=== PATIENT | female | born 1945 | race Caucasian/White ===

== ENCOUNTER 2016-06-07 11:18 | Emergency (ER) | payer OTHER ==
[2016-06-07 11:42] LABS: URINE MICRO REVIEW NEEDED? NO; URINE SOURCE CLEAN CATCH
[2016-06-07 11:52] LABS: BILIRUBIN URINE NEGATIVE (NEGATIVE); BLOOD URINE NEGATIVE (NEGATIVE); COLOR YELLOW; GLUCOSE URINE NEGATIVE (NEGATIVE); LEUKOCYTES URINE MODERATE (NEGATIVE); NITRITE URINE NEGATIVE (NEGATIVE); PROTEIN URINE NEGATIVE (NEGATIVE); SP GRAVITY URINE 1.011; TURBIDITY URINE CLEAR (CLEAR); UROBILINOGEN URINE NORMAL (NORMAL)
[2016-06-07 11:54] LABS: UR EPITHELIAL CELLS <10 /HPF (<10); URINE BACTERIA NEGATIVE /HPF; URINE CULTURE NEEDED? YES; URINE RBC <10 /HPF (<10); URINE WBC <10 /HPF (<10)
[2016-06-07] MEDS ORDERED: NORCO-5 PO ONE (13:53)
--- NOTE | 2016-06-07 14:15 | PROVIDER DOCUMENTATION ---
HPI-General Adult - General Source: patient - History of Present Illness -Gen Adult Nature of Presenting Problems: Pt is a 70 yof who came to the ED with a cc of LLQ/flank pain. Pt reports she got diagnosed last week with a UTI and was prescribed an antibiotic but it did not resolve the problem. Pt reports she is having LLQ pain. Pt reports she vomited last night. Location of Pain/Injury: reports: abdomen (LLQ) Pain Radiation: reports: flank (L) Quality of Pain: reports: sharp Severity: reports: mild Onset/Duration: reports: 1 week ago Timing: reports: still present Context/Activities at Onset: reports: none Modifying Factors: improves with: nothing Similar Symptoms Previously?: No Recently seen or treated by another doctor?: No <Tita Can - Last Filed: 06/07/16 14:09> <Jv Gibbs - Last Filed: 06/07/16 17:01> - General Chief Complaint: Flank Pain Stated Complaint: LOWER BACK PAIN,LEFT FLANK PAIN Time Seen by Provider: 06/07/16 13:29 Allergies/Adverse Reactions: Patient Allergies Allergy/AdvReac Type Severity Reaction Status Date / Time Penicillins Allergy Severe ANAPHYLAXIS Verified 02/16/16 13:13 Home Medications: Home Medication List Medication Instructions Recorded Confirmed Last Taken Type Anastrozole [Arimidex] 1 mg PO DAILY 08/29/15 08/29/15 02/16/16 09:00 History Azithromycin [Zithromax Z-Terry] 250 mg PO DIRECTED #1 pkg 02/16/16 Unknown Rx Calcium Carbonate/Vitamin D3 1 each PO BID 02/16/16 02/16/16 02/16/16 09:00 History [Calcium 600-Vit D3 800 Tab] Ciprofloxacin [Cipro] 500 mg PO BID 02/16/16 02/16/16 02/16/16 09:00 History Guaifen/Dextromethorphan/PE 1 each PO TID #30 tablet 02/16/16 Unknown Rx [Deconex Dmx Tablet] Levothyroxine Sodium 50 mcg PO DAILY 02/16/16 02/16/16 02/16/16 09:00 History Montelukast Chew [Singulair] 5 mg PO DAILY #30 tablet 02/16/16 Unknown Rx Bisacodyl [Dulcolax] 10 mg PA QHS #20 supp 06/07/16 Unknown Rx Polyethylene Glycol 3350 [Miralax] 1 cap PO DAILY #1 powder 06/07/16 Unknown Rx Review of Systems - Adult - REVIEW OF SYSTEMS - ADULT Constitutional: denies: chills, fever Eyes: reports: no symptoms reported Ears, Nose, Mouth & Throat: denies: epistaxis, mouth/dental pain Cardiovascular: reports: no symptoms reported Respiratory: reports: no symptoms reported Gastrointestinal: reports: abdominal pain (LLQ), nausea, vomiting. denies: difficulty swallowing, frequent heartburn Genitourinary: reports: flank pain. denies: hematuria, hesitency Musculoskeletal: reports: no symptoms reported Integumentary: reports: no symptoms reported Neurological: reports: no symptoms reported Psychiatric: reports: no symptoms reported Endocrine: reports: no symptoms reported Hematologic/Lymphatic: reports: no symptoms reported Allergic/Immunologic: reports: no symptoms reported All Other Systems: Reviewed and Negative <Tita Can - Last Filed: 06/07/16 14:09> Past History - Adult - PAST MEDICAL HISTORY-ADULT Review of Records: reports: Old Records Reviewed, Nursing Assessment Review Major Childhood Illnesses: reports: denies history Cardiovascular: reports: denies history Respiratory: reports: denies history Gastrointestinal: reports: denies history Obstetrical/Gynecological: reports: denies history Genitourinary: reports: denies history Musculoskeletal: reports: arthritis, fibromyalgia Neurological: reports: denies history Endocrine/Immune: reports: thyroid disorder Other Conditions: reports: denies history - PRIOR SURGERIES/PROCEDURES Surgical/Procedure History: reports: hysterectomy, joint replacement - IMMUNIZATION STATUS Childhood Immunizations: See Nurse Assessment Flu Vaccine: See Nurse Assessment - FAMILY HISTORY Family History: reviewed, not pertinent <Tita Can - Last Filed: 06/07/16 14:09> Physical Exam-General - PHYSICAL EXAM-ADULT Initial Vital Signs Reviewed: Yes - CONSTITUTIONAL General Appearance: appears well, alert - EYES Eyes: PERRL/EOMI, pink conjunctivae - HEAD, EARS, NOSE, MOUTH & THROAT HENMT: normocephalic/atraumatic, moist mucous membranes - NECK Neck: non-tender - RESPIRATORY Respiratory: chest non-tender, lungs clear - CARDIOVASCULAR Cardiovascular: normal peripheral pulses, regular rate, rhythm - CHEST (BREASTS) Chest/Breast: deferred - GASTROINTESTINAL (ABDOMEN) Abdominal Exam: normal bowel sounds, tenderness (LLQ and left flank pain) - MUSCULOSKELETAL Back Exam: normal inspection Extremity: normal range of motion - SKIN Integumentary: normal color - NEUROLOGIC Neurologic: grossly normal - PSYCHIATRIC Psych/Mental Status: normal mood/affect, normal thought content, normal thought process, oriented x 3 <Tita Can - Last Filed: 06/07/16 14:09> Progress - PLAN OF CARE/RESULTS Progress/Plan/Lab Results: Vital Signs - 24 hr 06/07/16 11:23 Temperature 97.4 F L Pulse Rate 75 Respiratory 18 Rate Blood Pressure 134/73 O2 Sat by Pulse 98 Oximetry Orders Category Date Time Status RENAL STONE SEARCH [CT] Stat Exams 06/07/16 13:53 Ordered CBC WITH ELECTRONIC DIFF [HEME] Stat Lab 06/07/16 13:53 Uncollected COMPREHENSIVE METABOLIC PANEL [CHEM] Stat Lab 06/07/16 13:53 Uncollected UA NIMS W/REFLEX CULT [URINALYSIS] Stat Lab 06/07/16 11:33 Completed URINE CULTURE [RM] Routine Lab 06/07/16 12:11 Received Hydrocodone/APAP 5 mg/325 mg [Adin-5] Med 06/07/16 13:53 Discontinued 1 each PO NOW ONE Laboratory Tests 06/07/16 11:33 Urine Source CLEAN CATCH Urine Color YELLOW Urine Turbidity CLEAR Urine pH 7.0 Ur Specific Guy 1.011 Urine Protein NEGATIVE Ur Glucose (Stick) NEGATIVE Ur Ketones (Stick) NEGATIVE Urine Blood NEGATIVE Urine Nitrite NEGATIVE Urine Bilirubin NEGATIVE Urobilinogen Dipstick NORMAL Urine Leukocytes MODERATE A Urine WBC (Auto) <10 Urine RBC (Auto) <10 U Epithel Cells (Auto) <10 Urine Bacteria (Auto) NEGATIVE <Tita Can - Last Filed: 06/07/16 14:09> - PLAN OF CARE/RESULTS Progress/Plan/Lab Results: Orders Category Date Time Status RENAL STONE SEARCH [CT] Stat Exams 06/07/16 13:53 Draft CBC WITH ELECTRONIC DIFF [HEME] Stat Lab 06/07/16 15:39 Completed COMPREHENSIVE METABOLIC PANEL [CHEM] Stat Lab 06/07/16 15:39 Completed UA NIMS W/REFLEX CULT [URINALYSIS] Stat Lab 06/07/16 11:33 Completed URINE CULTURE [RM] Routine Lab 06/07/16 12:11 Received Hydrocodone/APAP 5 mg/325 mg [Adin-5] Med 06/07/16 13:53 Discontinued 1 each PO NOW ONE Laboratory Tests 06/07/16 06/07/16 06/07/16 11:33 15:39 15:39 WBC 7.33 RBC 4.64 Hgb 14.1 Hct 42.7 MCV 92.0 MCH 30.4 MCHC 33.0 RDW Std Deviation 13.7 Plt Count 325 MPV 9.4 Immature Gran % (Auto) 0.0 Neut % (Auto) 44.5 Lymph % (Auto) 46.0 [place] % (Auto) 7.0 Eos % (Auto) 2.2 Baso % (Auto) 0.3 Immature Gran # (Auto) 0.00 Neut # (Auto) 3.27 Lymph # (Auto) 3.37 [place] # (Auto) 0.51 Eos # (Auto) 0.16 Baso # (Auto) 0.02 Sodium 136 Potassium 4.2 Chloride 99 Carbon Dioxide 26 Anion Gap 11 BUN 17 Creatinine 1.0 H Estimated GFR/1.73 m2 55 BUN/Creatinine Ratio 17 Glucose 81 Calculated Osmolality 273 Calcium 9.1 Total Bilirubin 0.52 AST 15 ALT 12 Alkaline Phosphatase 61 Total Protein 7.4 Albumin 4.3 Globulin 3.1 Albumin/Globulin Ratio 1.4 Urine Source CLEAN CATCH Urine Color YELLOW Urine Turbidity CLEAR Urine pH 7.0 Ur Specific Guy 1.011 Urine Protein NEGATIVE Ur Glucose (Stick) NEGATIVE Ur Ketones (Stick) NEGATIVE Urine Blood NEGATIVE Urine Nitrite NEGATIVE Urine Bilirubin NEGATIVE Urobilinogen Dipstick NORMAL Urine Leukocytes MODERATE A Urine WBC (Auto) <10 Urine RBC (Auto) <10 U Epithel Cells (Auto) <10 Urine Bacteria (Auto) NEGATIVE Vital Signs - 24 hr 06/07/16 06/07/16 11:23 15:41 Temperature 97.4 F L Pulse Rate 75 76 Respiratory 18 18 Rate Blood Pressure 134/73 115/58 O2 Sat by Pulse 98 98 Oximetry - CT/MRI 1 CT Study: Renal Stone Impression: Abnormal (No renal stones or hydro. Extensive diverticulosis but no sign of diverticulitis. Possible mild to moderate constipation. Shotty borderline to mildly prominent mesenteric nodes c surrounding induration that have developed during the interval. Although non-specific, this is usually associated c mesenteric paniculitis. - Radiology Reported) <Jv Gibbs Last Filed: 06/07/16 17:01> Departure <Tita Can - Last Filed: 06/07/16 14:09> - Departure Time of Disposition Order: 17:00 Certified Medical Emergency: Emergent <Jv Gibbs - Last Filed: 06/07/16 17:01> - Departure DIAGNOSIS: Constipation Qualifiers: Constipation type: unspecified constipation type Qualified Code(s): K59.00 - Constipation, unspecified Disposition: HOME 01 Condition: Stable Additional Instructions: ED Follow Up Instructions: You have been treated by a care provider in the Emergency Department. These instructions are being provided to you so you can have an understanding of how to care for yourself upon discharge. Upon discharge from the Emergency Department, you are responsible for making arrangements for follow-up care by a physician of your choice. Take all prescribed medications as directed. Return to the Emergency Department immediately for any new or worsening symptoms. You may call the Physician Referral phone number at [phone] to obtain a list of Physicians who are taking new patients. Prescriptions: Bisacodyl [Dulcolax] 10 mg PA QHS #20 supp Polyethylene Glycol 3350 [Miralax] 1 cap PO DAILY #1 powder Referrals: Husam Quick MD [Primary Care Provider] - Attestation - Scribe Verification/Attestation Scribe:: Tita Can Acting as Scribe for:: Jv Gibbs Scribe documention review:: This chart was documented by a scribe and accurately reflects the service the provider performed and the decisions made by the provider. <Tita Can - Last Filed: 06/07/16 14:09> - Physician/ ROBBIN Attestation Patient care was provided by Advanced Practice Provider:: Yes Advanced Practice Provider:: Jv Gibbs Advanced Practice Provider documentation review:: The Mid-level provider documentation, treatment plan and medical decision making was reviewed by the physician who agrees with all treatment and medical decision making by the MLP. <Jv Gibbs - Last Filed: 06/07/16 17:01> Physician Attestation
--- NOTE | 2016-06-07 15:24 | Diag Imaging Result Document ---
PROCEDURE NAME: RENAL STONE SEARCH - 06/07/2016 CT ABDOMEN AND PELVIS WITHOUT CONTRAST/RENAL STONE PROTOCOL: COMPARISON: 04/14/2011. FINDINGS: There is a small hepatic cyst in the medial right hepatic lobe. There are no renal or ureteral stones, and there is no hydronephrosis. There is a fair amount of stool in the colon suggesting possible [id number]-py-zbnzaafw constipation. There is severe sigmoid colonic diverticulosis. However, there is no evidence of diverticulitis. There are shotty Borderline-to- mildly prominent mesenteric lymph nodes with surrounding induration that have developed during the interval. Although nonspecific, this is usually associated with mesenteric panniculitis. There is no evidence of appendicitis. There is no evidence of bowel obstruction. The remainder of the solid viscera of the abdomen and pelvis and the remainder of the GI tract is essentially unremarkable. There has been a previous hysterectomy. No free abdominal gas or free fluid is appreciated. IMPRESSION: 1. No renal or ureteral stones and no evidence of acute obstructive uropathy. 2. Possible constipation. 3. Shotty mildly prominent or borderline prominent mesenteric lymph nodes with surrounding induration that has developed during the interval. Although nonspecific, this is usually associated with mesenteric panniculitis. 4. Other incidental/nonacute findings detailed above.
[2016-06-07 16:14] LABS: MANUAL DIFF NEEDED? NO
[2016-06-07 16:29] LABS: BASO% 0.3 % (0.0-0.8); EOS# 0.16 X1000 (0.0-0.7); EOS% 2.2 % (0.0-10.0); HEMATOCRIT 42.7 % (37.0-47.0); HEMOGLOBIN 14.1 g/dL (12.0-16.0); LYMPH# 3.37 X1000 (1.2-3.4); MCH 30.4 PG (27-31); MONO# 0.51 X1000 (0.11-0.59); MPV 9.4 FL (7.4-10.4); NEUT% 44.5 % (42.2-75.2); PLT 325 X1000 (130-400); RBC 4.64 XMIL (4.2-5.4)
[2016-06-07 16:37] LABS: ALBUMIN 4.3 g/dL (3.5-5.0); CALCIUM 9.1 mg/dL (8.8-10.2); POTASSIUM 4.2 mmol/L (3.5-5.1); TOTAL BILIRUBIN 0.52 mg/dL (0.20-1.00); TOTAL PROTEIN 7.4 g/dL (6.3-8.3)
[2016-06-07 18:27] VITALS: BP 121/62
== END 2016-06-07 18:28 | disposition home or self-care (01) ==
LOC: ED 11:18
DX: K59.00 Constipation, unspecified (principal); R10.32 Left lower quadrant pain; R10.9 Unspecified abdominal pain; M54.5 Low back pain; R11.2 Nausea with vomiting, unspecified; R10.814 Left lower quadrant abdominal tenderness; M19.90 Unspecified osteoarthritis, unspecified site; M79.7 Fibromyalgia; Z79.899 Other long term (current) drug therapy; E07.9 Disorder of thyroid, unspecified; Z96.60 Presence of unspecified orthopedic joint implant
CPT/HCPCS: 74176; 80053; 81001; 85025; 87088; 99282

== ENCOUNTER 2018-08-03 16:35 | Inpatient (IN) ==
[2018-08-03 17:10] LABS: BASO# 0.05 X1000 (0.0-0.2); BASO% 0.4 % (0.0-0.8); EOS# 0.31 X1000 (0.0-0.7); EOS% 2.2 % (0.0-10.0); HEMATOCRIT 44.1 % (37.0-47.0); HEMOGLOBIN 14.6 g/dL (12.0-16.0); IMM GRAN# 0.15 X1000 (0.0-0.04); IMM GRAN% 1.1 % (0.0-0.5); LYMPH# 2.38 X1000 (1.2-3.4); LYMPH% 17.2 % (20.5-51.1); MCH 29.9 PG (27-31); MCHC 33.1 g/dL (33-37); MCV 90.4 FL (81-99); MONO% 6.5 % (1.7-9.3); MPV 9.1 FL (7.4-10.4); NEUT# 10.08 X1000 (1.4-6.5); NEUT% 72.6 % (42.2-75.2); PLT 305 X1000 (130-400); RBC 4.88 XMIL (4.2-5.4); RDW 13.7 % (11.5-14.5); WBC 13.87 X1000 (4.8-10.8)
[2018-08-03] MEDS ORDERED: NS 1,000 ML IV ONE ×2 (17:25→20:20)
[2018-08-03] MEDS ORDERED: MORPHINE IV ONE (17:25)
[2018-08-03] MEDS ORDERED: ZOFRAN IV ONE (17:25)
[2018-08-03 17:27] LABS: ALB/GLOB RATIO 1.1; CALCIUM 9.6 mg/dL (8.8-10.2); CREATININE 1.3 mg/dL (0.5-0.9); POTASSIUM 3.7 mmol/L (3.5-5.1); TOTAL BILIRUBIN 0.47 mg/dL (0.20-1.00); TOTAL PROTEIN 7.7 g/dL (6.3-8.3)
--- NOTE | 2018-08-03 17:29 | PROVIDER DOCUMENTATION ---
HPI-Abdominal Pain/GI Problem - General Chief Complaint: Abdominal Pain Stated Complaint: LOWER ABD PAIN,VOMITING Time Seen by Provider: 08/03/18 17:10 Source: patient Allergies/Adverse Reactions: Patient Allergies Allergy/AdvReac Type Severity Reaction Status Date / Time Penicillins Allergy Severe ANAPHYLAXIS Verified 05/07/18 00:55 Home Medications: Home Medication List Medication Instructions Recorded Confirmed Last Taken Type Calcium Carbonate/Vitamin D3 1 each PO BID 02/16/16 09/20/16 09/20/16 History [Calcium 600-Vit D3 800 Tab] Cyanocobalamin (Vitamin B-12) 5,000 mcg PO DAILY 06/07/16 09/20/16 09/20/16 History [Vitamin B-12] Venlafaxine HCl [Venlafaxine HCl 37.5 mg PO DAILY 06/07/16 09/20/16 09/20/16 History ER] Anastrozole [Arimidex] 1 mg PO QAM 09/20/16 09/20/16 09/20/16 History Hydrocodone/APAP 5 mg/325 mg 1 each PO Q6H PRN PRN #10 tablet 09/20/16 Unknown Rx [[place]-5] Levothyroxine [Synthroid] 50 microgm PO DAILY 09/20/16 09/20/16 09/20/16 History - History of Present Illness-ABD Nature of Presenting Problems: Patient is a 72 yowf who complains of upper and lower abdominal pain associated with n/v that began today. States she has been constipated x 1 week. Denies fever or any other symptoms. She is non-toxic in appearance. Last BM: 1 week ago Dark Stools Present?: reports: none noticed. denies: maroon, black, tarry, bright red blood Rectal Bleeding: reports: none Review of Systems - Adult - REVIEW OF SYSTEMS - ADULT Constitutional: reports: no symptoms reported. denies: chills Eyes: reports: no symptoms reported Ears, Nose, Mouth & Throat: reports: no symptoms reported Cardiovascular: reports: no symptoms reported Respiratory: reports: no symptoms reported Gastrointestinal: reports: see HPI, abdominal pain, constipation, nausea, vomiting. denies: hematemesis, diarrhea, difficulty swallowing, frequent heartburn, rectal bleeding Genitourinary: reports: no symptoms reported Musculoskeletal: reports: no symptoms reported Integumentary: reports: no symptoms reported Neurological: reports: no symptoms reported Psychiatric: reports: no symptoms reported Endocrine: reports: no symptoms reported Hematologic/Lymphatic: reports: no symptoms reported Allergic/Immunologic: reports: no symptoms reported All Other Systems: Reviewed and Negative Past History - Adult - PAST MEDICAL HISTORY-ADULT Review of Records: reports: Old Records Reviewed, Nursing Assessment Review, Medications Reviewed, Social history reviewed & non-contributory. Major Childhood Illnesses: reports: denies history Cardiovascular: reports: HTN Respiratory: reports: denies history Gastrointestinal: reports: denies history Obstetrical/Gynecological: reports: denies history Genitourinary: reports: denies history Musculoskeletal: reports: arthritis, fibromyalgia Neurological: reports: denies history Endocrine/Immune: reports: cancer, thyroid disorder Other Conditions: reports: denies history - PRIOR SURGERIES/PROCEDURES Surgical/Procedure History: reports: hysterectomy, joint replacement, breast - IMMUNIZATION STATUS Childhood Immunizations: See Nurse Assessment Flu Vaccine: See Nurse Assessment - FAMILY HISTORY Family History: reviewed, not pertinent - SOCIAL HISTORY Smoking: non-smoker Physical Exam-General - PHYSICAL EXAM-ADULT Initial Vital Signs Reviewed: Yes - CONSTITUTIONAL General Appearance: alert, mild distress. negative: lethargic, slow to respond - EYES Eyes: PERRL/EOMI, pink conjunctivae - HEAD, EARS, NOSE, MOUTH & THROAT HENMT: normocephalic/atraumatic, moist mucous membranes - NECK Neck: full range of motion, supple, normal inspection - RESPIRATORY Respiratory: chest non-tender, lungs clear, normal breath sounds, no pleuratic chest pain, no respiratory distress, no accessory muscle use - CARDIOVASCULAR Cardiovascular: normal peripheral pulses, regular rate, rhythm, no edema, no gallop, no JVD, no murmur, tachycardia - GASTROINTESTINAL (ABDOMEN) Abdominal Exam: normal bowel sounds, soft, no organomegaly, no pulsatile mass, tenderness (Diffuse- more in lower abdomen and severe in LLQ). negative: distended, guarding, rigid, rebound, hernia, mass, hepatomegaly, splenomegaly - MUSCULOSKELETAL Back Exam: normal inspection, no CVA tenderness Extremity: normal range of motion, non-tender, normal gait, normal inspection - SKIN Integumentary: normal color, warm/dry. negative: cyanosis, diaphoresis, jaundice, mottled, pallor - NEUROLOGIC Neurologic: grossly normal, no motor/sensory deficits - PSYCHIATRIC Psych/Mental Status: normal mood/affect, normal thought content, normal thought process, oriented x 3 Progress - PLAN OF CARE/RESULTS Progress/Plan/Lab Results: Vital Signs - 8 hr 08/03/18 16:38 Temperature 97.0 F L Pulse Rate 131 H Respiratory Rate 18 Blood Pressure 159/90 O2 Sat by Pulse Oximetry 98 Laboratory Results - last 24 hr 08/03/18 16:51 WBC 13.87 H RBC 4.88 Hgb 14.6 Hct 44.1 MCV 90.4 MCH 29.9 MCHC 33.1 RDW Std Deviation 13.7 Plt Count 305 MPV 9.1 Immature Gran % (Auto) 1.1 H Neut % (Auto) 72.6 Lymph % (Auto) 17.2 L [place] % (Auto) 6.5 Eos % (Auto) 2.2 Baso % (Auto) 0.4 Immature Gran # (Auto) 0.15 H Neut # (Auto) 10.08 H Lymph # (Auto) 2.38 [place] # (Auto) 0.90 H Eos # (Auto) 0.31 Baso # (Auto) 0.05 Orders Category Date Time Status Nursing- Obtain EKG ONCE Care 08/03/18 17:25 Ordered AMYLASE [CHEM] Stat Lab 08/03/18 16:51 Received BLOOD CULTURE [BLDCUL] Stat Lab 08/03/18 17:25 Uncollected CBC WITH ELECTRONIC DIFF [HEME] Stat Lab 08/03/18 16:51 Completed COMPREHENSIVE METABOLIC PANEL [CHEM] Stat Lab 08/03/18 16:51 Received LACTATE, PLASMA [CHEM] Stat Lab 08/03/18 17:25 Uncollected LIPASE [CHEM] Stat Lab 08/03/18 16:51 Received TROPONIN T Stat Lab 08/03/18 17:25 Ordered URINALYSIS W/POSS RFLX CULT [URINALYSIS] Stat Lab 08/03/18 16:43 Uncollected Morphine Med 08/03/18 17:25 Once 4 mg IV NOW ONE Ns 1000 ml IV Bolus X1 Med 08/03/18 17:25 Ordered 0.9% Sodium Chloride Inj [Ns] 1,000 ml IV 999 mls/hr Ondansetron [Zofran] Med 08/03/18 17:25 Once 4 mg IV NOW ONE EKG [EKG] Stat Ther 08/03/18 17:25 Ordered 2014- Admitting [facility] paged. Pt states feeling better after meds. [facility] accepted admission. Pt in agreement with admission plan. Result Diagrams: 08/03/18 16:51 08/03/18 16:51 - EKG 1 Time of EKG reading by physician:: 18:36 EKG Read and Signed by:: Kodi Tillman EKG Interpretation (*Must complete 3 of following elements*): Abnormal Rate: 93 Rhythm: SR with nonspecific t-wave abnormality QRS: normal - CT/MRI 1 CT Study: Abdomen, Pelvis (IMPRESSION: No evidence of renal stone or hydronephrosis. Diverticulitis at proximal to mid sigmoid colon. No evidence of abscess. No free air. The right colon is mildly distended with fecal debris and fluid. This exam was performed using automated exposure control, a djustment of mA or kV according to patient size, and/or use of iterative reconstruction technique. Electronically signed by Erick Shine 08/03/2018 7:35 PM 08/03/181934 Interpreting Physician: Erick Shine MD Dictated Date/Time: 08/03/181927 cc: Meg Swenson; Husam Rodríguez MD) - CONSULTS/PCP/HOSPITALIST Notification #1 *Consult/PCP/Hospitalist*: Dr. Farris Time Discussed: 20:33 Reason/Comments: admission-diverticulitis Consult Disposition: Admit Departure - Departure Date of Disposition Decision: 08/03/18 Time of Disposition Decision: 20:38 DIAGNOSIS: Diverticulitis Disposition: ADMITTED INPATIENT 09 Certified Medical Emergency: Emergent Condition: Stable Referrals and Follow-Ups: Husam Quick MD [Primary Care Provider] - - Critical Care Note This patient required my direct & personal management of CC.: No Attestation - Physician/ ROBBIN Attestation Patient care was provided by Advanced Practice Provider:: Yes Advanced Practice Provider:: Meg Swenson Advanced Practice Provider documentation review:: The Mid-level provider documentation, treatment plan and medical decision making was reviewed by the physician who agrees with all treatment and medical decision making by the P. The physician spent face to face time with patient:: No Advanced Practice Provider documentation review:: Supervising physician onsite and consulted in the evaluation and care of this patient. The physician did not have a face to face encounter with the patient.
--- NOTE | 2018-08-03 18:40 | ED EKG INTERP ---
This chart was entered by Damari Biswas Scribe, acting as scribe for Kodi Tillman MD. EKG Interpretation - EKG Time of EKG reading by physician:: 18:36 EKG Read and Signed by:: Kodi Tillman EKG Interpretation (*Must complete 3 of following elements*): Abnormal (possible LAE, non specific st abnormality) Rate: 93 Rhythm: nsr [place]: normal QRS: normal [place] Interval: normal Attestation - Physician/ ROBBIN Attestation Patient care was provided by Advanced Practice Provider:: Yes Advanced Practice Provider documentation review:: The Mid-level provider documentation, treatment plan and medical decision making was reviewed by the physician who agrees with all treatment and medical decision making by the MLP. The physician spent face to face time with patient:: No Advanced Practice Provider documentation review:: Supervising physician onsite and consulted in the evaluation and care of this patient. The physician did not have a face to face encounter with the patient. This chart was documented by the indicated scribe, (Damari Biswas Scribe) and accurately reflects the services I performed and decisions made by me, Kodi Tillman MD, as attested by the provider's signature.
[2018-08-03 18:41] LABS: URINE SOURCE CLEAN CATCH
[2018-08-03 19:05] LABS: BILIRUBIN URINE SMALL (NEGATIVE); BLOOD URINE NEGATIVE (NEGATIVE); COLOR YELLOW; GLUCOSE URINE NEGATIVE (NEGATIVE); KETONE URINE TRACE mg/dL (NEGATIVE); LEUKOCYTES URINE SMALL (NEGATIVE); NITRITE URINE NEGATIVE (NEGATIVE); PROTEIN URINE TRACE mg/dL (NEGATIVE); SP GRAVITY URINE 1.022; TURBIDITY URINE TURBID (CLEAR); UROBILINOGEN URINE 4 mg/dL (NORMAL)
[2018-08-03 19:06] LABS: UR EPITHELIAL CELLS <10 /HPF (<10); URINE BACTERIA 1+ /HPF; URINE CASTS NONE SEEN; URINE CRYSTALS CA OXALATE PRESENT; URINE RBC <10 /HPF (<10); URINE SMALL ROUND CELLS NONE SEEN; URINE WBC <10 /HPF (<10); URINE YEAST NONE SEEN
--- NOTE | 2018-08-03 19:37 | Diag Imaging Result Doc PS360 ---
EXAM: CT ABDOMEN/PELVIS W/O CONTRAST - 08/03/2018 HISTORY: lower abdominal pain/tenderness TECHNIQUE: CT renal stone search without contrast COMPARISON: 06/07/2016 FINDINGS: There is no hydronephrosis or perinephric edema identified. There is no renal stone identified. There is colonic diverticulosis which is most extensive at the sigmoid. There are mild inflammatory changes at the proximal to mid sigmoid colon which are consistent with diverticulitis. There is no abscess identified. There is no free air identified. The right colon is mildly distended with fecal debris and fluid. There is no evidence of small bowel obstruction. The appendix is not visualized. The gallbladder is mildly distended. There are no calcified gallstones or pericholecystic inflammation identified. IMPRESSION: No evidence of renal stone or hydronephrosis. Diverticulitis at proximal to mid sigmoid colon. No evidence of abscess. No free air. The right colon is mildly distended with fecal debris and fluid. This exam was performed using automated exposure control, adjustment of mA or kV according to patient size, and/or use of iterative reconstruction technique. Electronically signed by Erick Shine 08/03/2018 7:35 PM
[2018-08-03] MEDS ORDERED: FLAGYL 500 MG/NS 500 MG/100 ML IVPB IV ONE (20:20)
[2018-08-03] MEDS ORDERED: CIPRO 400 MG/D5W 400 MG/200 ML IVPB IV ONE (20:20)
[2018-08-03] MEDS ORDERED: TYLENOL PO PRN (23:26)
[2018-08-03] MEDS ORDERED: ZOFRAN IV PRN (23:26)
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
[2018-08-04] MEDS: MORPHINE IV PRN ×4 (00:21→12:29)
[2018-08-04] MEDS: PERICOLACE PO SCH ×3 (00:36→20:45)
[2018-08-04] MEDS: LOVENOX SUBQ SCH ×3 (00:37→22:52)
[2018-08-04] MEDS: NS 1,000 ML IV SCH ×2 (00:37→09:33)
[2018-08-04] MEDS: FLAGYL 500 MG/NS 500 MG/100 ML IVPB IV SCH ×4 (03:11→20:45)
[2018-08-04] MEDS: LEVAQUIN 500 MG/D5W 500 MG/100 ML IVPB IV SCH (06:45)
[2018-08-04] MEDS: SYNTHROID PO SCH (06:46)
--- NOTE | 2018-08-04 07:33 | EKG Report ---
Test Performed on : 08/03/2018 6:34:14 PM Test Reason : upper abdominal pain Blood Pressure : / mmHG Vent. Rate : 093 BPM Atrial Rate : 093 BPM P-R Int : 144 ms QRS Dur : 066 ms QT Int : 366 ms P-R-T Axes : 051 044 -03 degrees QTc Int : 455 ms Normal sinus rhythm. Possible Left atrial enlargement Nonspecific ST abnormality Abnormal ECG When compared with ECG of 18-FEB-2015 13:23, Vent. rate has increased BY 35 BPM QT has lengthened Unconfirmed Result
[2018-08-04 08:04] LABS: BASO# 0.02 X1000 (0.0-0.2); BASO% 0.2 % (0.0-0.8); EOS# 0.23 X1000 (0.0-0.7); EOS% 2.5 % (0.0-10.0); HEMATOCRIT 39.6 % (37.0-47.0); HEMOGLOBIN 12.8 g/dL (12.0-16.0); IMM GRAN# 0.05 X1000 (0.0-0.04); IMM GRAN% 0.5 % (0.0-0.5); LYMPH# 2.55 X1000 (1.2-3.4); LYMPH% 27.3 % (20.5-51.1); MCH 29.9 PG (27-31); MCHC 32.3 g/dL (33-37); MCV 92.5 FL (81-99); MONO# 0.75 X1000 (0.11-0.59); MPV 9.4 FL (7.4-10.4); NEUT# 5.73 X1000 (1.4-6.5); NEUT% 61.5 % (42.2-75.2); PLT 250 X1000 (130-400); RBC 4.28 XMIL (4.2-5.4); RDW 13.8 % (11.5-14.5); WBC 9.33 X1000 (4.8-10.8)
[2018-08-04 08:26] LABS: CALCIUM 8.2 mg/dL (8.8-10.2); CREATININE 1.2 mg/dL (0.5-0.9); MAGNESIUM 2.2 mg/dL (1.5-2.7); POTASSIUM 3.9 mmol/L (3.5-5.1)
[2018-08-04] MEDS: MAG-OX PO SCH (09:29)
[2018-08-04] MEDS ORDERED: HYDROCORTISONE 0.5% TOP SCH (10:30)
--- NOTE | 2018-08-04 11:41 | PROGRESS NOTE ---
DATE: 08/04/2018 INTERVAL HISTORY: Ms. Gardiner was admitted overnight for acute sigmoid diverticulitis with abdominal pain and vomiting. She has not had a vomiting episode since she has been here. She is feeling a little better; however, continues to have some abdominal pain. We discussed about the CT scan finding, acute diverticulitis as the pathogenesis, preventive measures. I answered all of their questions. The patient's is at bedside. Clinical course, exam findings, and plan mentioned with both of them, and all of their questions have been answered. VITALS: Currently detect that she has been afebrile with temperature of 98.1 degrees, pulse of 92 per minute, blood pressure of 130/57, saturating 96% on room air. PHYSICAL EXAMINATION: Not in any acute distress. Oral cavity is moist. No pallor, cyanosis, clubbing, or icterus. Distal interphalangeal joint osteoarthritis. Lungs: Air entry bilaterally equal. No wheeze, rhonchi, crackles. Cardiovascular: S1, S2 normal. No murmur, rub, or gallop. Abdomen: Soft. Tenderness in left lower quadrant without any rigidity or guarding. Hypoactive bowel sounds. Tympanic to percussion. No lower extremity edema. She has about a 3 x 3 cm patch of what appears to be nummular or round eczema affecting the left lower extremity and also one patch of right lower extremity, which are itchy. She also has nasal congestion. LABS: Suggestive of improvement in leukocytosis. Normal hemoglobin, hematocrit, and platelet count. Hyperchloremia. What appears to be chronic kidney disease stage 3. MICROBIOLOGY: Blood culture, no culture data positive. Urine culture pending. However, she did not have any urinary symptoms that she reported to me. IMAGING: No new imaging. ASSESSMENT AND PLAN: 1. Acute sigmoid diverticulitis with prior history of a diverticulitis episode and CT scan finding of multiple diverticulosis. Continue intravenous fluids and start patient on a clear liquid diet later today. Continue intravenous levofloxacin and Flagyl. The patient was advised to follow up with her outpatient pastoral worker after discharge. 2. Constipation with a history of hypothyroidism. Start patient on bisacodyl suppository and continue senna and docusate. Continue home levothyroxine. 3. Others. Continue enoxaparin for deep venous thrombosis prophylaxis, fluticasone nasal spray for allergic rhinitis, topical hydrocortisone for eczema of the left lower extremity. 4. Disposition. The patient remains inside the hospital as we monitor her course and start her on a clear liquid diet later today. Plan of care discussed with her. All of her questions have been answered satisfactorily. cc: Justo Byers MD
[2018-08-04] MEDS: DULCOLAX PR SCH ×2 (13:12→20:45)
[2018-08-04] MEDS: HYDROCORTISONE 1% OINTMENT TOP SCH ×2 (15:20→20:44)
[2018-08-04] MEDS: FLONASE NAS SCH (15:21)
[2018-08-05] MEDS: FLAGYL 500 MG/NS 500 MG/100 ML IVPB IV SCH ×4 (02:42→21:58)
[2018-08-05] MEDS: SYNTHROID PO SCH ×2 (05:34→06:18)
[2018-08-05] MEDS: LEVAQUIN 500 MG/D5W 500 MG/100 ML IVPB IV SCH (05:34)
[2018-08-05] MEDS: DULCOLAX PR SCH ×2 (09:07→21:58)
[2018-08-05] MEDS: FLONASE NAS SCH (09:09)
[2018-08-05] MEDS: HYDROCORTISONE 1% OINTMENT TOP SCH ×2 (09:09→21:57)
[2018-08-05] MEDS: PERICOLACE PO SCH ×2 (09:10→21:58)
[2018-08-05] MEDS: MAG-OX PO SCH (09:10)
[2018-08-05] MEDS ORDERED: NAPROSYN PO ONE (10:15)
--- NOTE | 2018-08-05 11:57 | PROGRESS NOTE ---
DATE: 08/05/2018 INTERVAL HISTORY: The patient had a bowel movement overnight. Her thyroid function tests were within acceptable range. Her abdominal pain is decreasing. She is complaining of migraine on the left side. She has been tolerating clear liquid diet well. She denies any more nausea or vomiting. VITALS: Temperature of 98.3, pulse 89, respiratory rate 17, blood pressure 134/62, and saturating 95% on room air. PHYSICAL EXAMINATION: Patient does not appear in any acute distress. No pallor, cyanosis, clubbing, or icterus. Distal interphalangeal joint osteoarthritis. Lungs: Air entry bilaterally equal. No wheeze, rhonchi or crackles. Heart: S1, S2 normal. No murmur or gallop. Abdomen: Soft. Tenderness in left lower quadrant without any rigidity or guarding, has significantly diminished. Good bowel sounds. Tympanic to percussion. No lower extremity edema. Extremities: She has an eczematous patch of the left lower hoffman extremity region which is itchy with erythema. HEENT: She also has mild nasal congestion, which is improved. She does not have any localized temporal tenderness. Her visual acuity is intact. LABORATORY DATA: No new lab data today. Microbiology: Blood culture no growth to date. Urine culture has Enterococcus faecalis group D which is asymptomatic so likely represents asymptomatic bacteriuria. ASSESSMENT AND PLAN: 1. Acute sigmoid diverticulitis with prior history of diverticulitis episode, and CT scan finding of multiple diverticulosis. Continue the patient on intravenous metronidazole and intravenous levofloxacin. She is off intravenous fluids now. Advance diet to full liquid diet and advance it to mechanical soft diet tomorrow. Blood culture has no growth to date. She should follow up with Gastroenterology as an outpatient. 2. Constipation with history of hypothyroidism, now relieved. Continue senna, docusate and bisacodyl suppository. Continue home levothyroxine. Her TSH is in acceptable range. 3. Continue enoxaparin for deep venous thrombosis prophylaxis, fluticasone nasal spray for allergic rhinitis, topical hydrocortisone for eczema, one time naproxen for migraine. 4. Disposition: Patient remains inside the hospital as I monitor her abdominal pain with advancement of diet. If she is able to tolerate advancement of diet tomorrow, my plan would be to change antibiotics to oral and potentially discharge her in the next 24 to 48 hours. Plan of care discussed with her. All of her questions have been answered.. cc: Justo Byers MD
[2018-08-05] MEDS: LOVENOX SUBQ SCH (21:59)
[2018-08-06] MEDS: LOVENOX SUBQ SCH (00:46)
[2018-08-06] MEDS: FLAGYL 500 MG/NS 500 MG/100 ML IVPB IV SCH ×3 (02:23→15:07)
[2018-08-06] MEDS: LEVAQUIN 500 MG/D5W 500 MG/100 ML IVPB IV SCH (05:56)
[2018-08-06] MEDS: SYNTHROID PO SCH ×2 (05:56→09:46)
[2018-08-06] MEDS: MAG-OX PO SCH (09:47)
[2018-08-06] MEDS: PERICOLACE PO SCH (09:47)
[2018-08-06] MEDS: DULCOLAX PR SCH (09:48)
[2018-08-06] MEDS: HYDROCORTISONE 1% OINTMENT TOP SCH (09:48)
[2018-08-06] MEDS: FLONASE NAS SCH (09:48)
[2018-08-06 13:33] VITALS: BP 112/60
[2018-08-06] MEDS ORDERED: MYLICON PO ONE (14:45)
[2018-08-07] MEDS ORDERED: VITAMIN D PO SCH (09:00)
--- NOTE | 2018-08-07 13:26 | DISCHARGE SUMMARY ---
ADMISSION DATE: 08/03/2018 DISCHARGE DATE: 08/06/2018 DISCHARGE DISPOSITION: Home with family. No other discharge needs. DISCHARGE CONDITION: Stable. The patient should eat softer diet for 2 days and then advance her diet slowly. She is hemodynamically stable. She is not having any nausea, vomiting, abdominal pain. She has had good bowel movements. She is tolerating softer diet well. She is complaining of gases distention and so EKG is ordered to rule out any cardiac ischemia though she does not complain of chest pain or shortness of breath. PHYSICAL EXAMINATION: Vital Signs: Currently vitals suggest temperature of 98.7 degrees, pulse 75, respiratory rate 14, blood pressure 110/60, saturating 100% on room air. General: At the time of discharge, the patient is alert and oriented x3, not in any acute distress. HEENT: Oral cavity moist. She also has mild nasal congestion, which is improved. Lungs: Air entry bilaterally equal. No wheeze, rhonchi, crackles. Cardiovascular: S1, S2 normal. No murmur, rub, or gallop. Musculoskeletal: She has a distal interphalangeal joint osteoarthritis. Abdomen: Soft, nontender. She has good bowel sounds Extremities: No lower extremity edema. Integument: She has a eczematous patch of her left lower hoffman, which is itchy with erythema, which is better after topical application. DISCHARGE DIAGNOSES: 1. Acute sigmoid diverticulitis. 2. Constipation. 3. Allergic rhinitis. 4. Eczema. 5. Clinical volume depletion. OTHER DIAGNOSES: 1. History of peptic ulcer disease. 2. History of migraine. 3. History of hypothyroidism. 4. Asymptomatic bacteriuria. 5. Chronic kidney disease stage 3. DISCHARGE MEDICATIONS: Magnesium oxide 400 mg daily, levothyroxine 50 mcg daily, bisacodyl suppository 10 mg per rectal b.i.d., senna docusate 2 tablet b.i.d., 20 tablets have been prescribed. She is advised to take these to avoid constipation, levofloxacin 500 mg daily 5 tablets, metronidazole 500 mg t.i.d., 15 tablets, fluticasone 50 mcg nasal spray, hydrocortisone 1% ointment, cholecalciferol, vitamin D3 2000 international units daily, 30 tablets have been prescribed. IMAGING AND LABORATORY: Laboratory: Her WBC was 13,013 at the time of her admission which had decreased to 9000 at the time of discharge. Her hemoglobin was 12.8, platelet count of 250,000. Her electrolytes suggested sodium of 140, potassium of 3.9, BUN of 13, and creatinine of 1.2 suggestive of suspected chronic kidney disease stage 3. Microbiology: She did have enterococcal faecalis in the urine. However, she did not have any urinary symptoms. Significant Imaging During hospital admission: The patient underwent abdomen and pelvis CT on August 03, which had suggested no evidence of renal stone or hydronephrosis. There was diverticulitis at the proximal to mid sigmoid colon without any evidence of abscess without any free air. HOSPITAL COURSE SUMMARY: Ms. Gardiner is a 72-year-old lady with past medical history of diverticulitis who came in with chief complaint of lower quadrant abdominal pain, vomiting of about 3 days duration. Apparently, her symptoms had started 3 days prior to presentation with right lower quadrant abdominal pain and 3 episodes of vomiting. The abdominal pain was stabbing in nature without any significant aggravating or relieving factors. The next day, she had felt better. However, the day after she again started having recurrent symptoms, she had not noticed any blood in her vomiting. Her symptoms did not resolve and that is why she came to the emergency room. In the emergency room she was hemodynamically stable except initial recorded pulse of 131. She was started on intravenous fluid resuscitation and abdominal CT scan was performed which suggested diverticulitis, so she was admitted for further management. Patient CT scan detected acute diverticulitis in sigmoid colon region, so she was treated with intravenous levofloxacin and metronidazole since she was allergic to penicillin and intravenous fluid. Initially, she was kept n.p.o. and she was later started on liquid diet which she tolerated well. At the time of discharge, she was tolerating GI soft diet well and was not having any abdominal pain. She was discharged on p.o. antibiotics and was advised to follow up with her outpatient junior staff accountant and discuss about this admission. Plan of care discussed with her. All of her questions have been answered. Her was also at bedside. TIME SPENT: More than 30 minutes were spent discharging this patient. cc: Justo Byers MD
--- NOTE | 2018-08-08 07:20 | EKG Report ---
Test Performed on : 08/06/2018 3:27:22 PM Test Reason : Epigastric discomfort Blood Pressure : / mmHG Vent. Rate : 067 BPM Atrial Rate : 067 BPM P-R Int : 156 ms QRS Dur : 076 ms QT Int : 410 ms P-R-T Axes : 048 020 009 degrees QTc Int : 433 ms Normal sinus rhythm. Normal ECG When compared with ECG of 03-AUG-2018 18:34, (Unconfirmed) No significant change was found Confirmed by Marcell CHASE, Eagle Gross ([id number]) on 08/08/2018 9:28:11 AM
== END 2018-08-06 16:29 | disposition home or self-care (01) | DRG 392 ==
LOC: ED 16:35 → 3N 22:26 → SUATTDRO 22:26
PROVIDERS: ATTEND Internal Medicine
CPT/HCPCS: 74176; 80048; 80053; 81001; 82150; 82306; 83605; 83690; 83735; 84443; 84484; 85025; 87040; 87077; 87088; 87186; 93005; 93010; 96361; 96365; 96366; 96368; 96375; 99285; A9270; J0744; J1650; J1956; J2270; J2405; J7030; S0030